=== PATIENT | male | born 1995 ===

== ENCOUNTER 2019-08-05 19:02 | Inpatient (IN) | payer MEDICAID ==
[~2019-08-05] VITALS: Ht 167.6 cm; Wt 77.8 kg
[2019-08-05] MEDS ORDERED: BISACODYL 10 MG SUPP PR PRN (19:30)
[2019-08-05] MEDS ORDERED: DOCUSATE 100 MG CAPSULE PO PRN (19:30)
[2019-08-05] MEDS ORDERED: ONDANSETRON ODT 4 MG PO PRN (19:30)
[2019-08-05] MEDS ORDERED: POLYETHYLENE GLYCOL 17 GM PACKET PO PRN (19:30)
[2019-08-05] MEDS ORDERED: ACETAMINOPHEN 325 MG TABLET PO PRN (19:30)
[2019-08-05 20:15] VITALS: BP 145/86
[2019-08-05] MEDS ORDERED: PLEASE ENTER HEIGHT AND WEIGHT MC SCH (21:30)
[2019-08-05] MEDS ORDERED: PLEASE ENTER ALLERGIES MC SCH (21:30)
[2019-08-06 01:00] VITALS: BP 145/86
[2019-08-06] MEDS ORDERED: TRAZ-175 PO (01:48)
[2019-08-06 05:59] LABS: BASOPHILS # (AUTO) 0.03 x10^3/uL (0-0.1); BASOPHILS % (AUTO) 1 % (0-1); EOSINOPHILS # (AUTO) 0.14 x10^3/uL (0-0.4); EOSINOPHILS % (AUTO) 3 % (1-7); LYMPHOCYTES # (AUTO) 2.24 x10^3/uL (1-3.4); LYMPHOCYTES % (AUTO) 39 % (22-44); MD NO; MEAN CORPUSCULAR HEMOGLOBIN 30.6 pg (27.5-34.5); MEAN CORPUSCULAR HGB CONC 33.8 g/dL (33.2-36.2); MEAN CORPUSCULAR VOLUME 90.6 fL (81-97); MEAN PLATELET VOLUME 8.7 fL (7.4-10.4); MONOCYTES % (AUTO) 7 % (2-9); NEUTROPHILS # (AUTO) 2.94 x10^3/uL (1.8-6.8); NEUTROPHILS % (AUTO) 51 % (42-75); PLATELET COUNT 204 x10^3/uL (130-400); RED BLOOD COUNT 5.77 x10^6/uL (4.38-5.82); RED CELL DISTRIBUTION WIDTH 13.1 % (9.4-14.8)
[2019-08-06 06:07] LABS: CHLORIDE 108 mmol/L (98-107)
[2019-08-06 06:38] LABS: ANION GAP 8 mmol/L (5-15); CALCIUM 9.1 mg/dL (8.5-10.1); CHOL/HDL RATIO 5.3; CHOLESTEROL, TOTAL 186 mg/dL (140-239); CREATININE 1.19 mg/dL (0.7-1.3); FREE T4 (FREE THYROXINE) 1.17 ng/dL (0.76-1.46); HDL CHOL % 19 % (26-37); HDL CHOLESTEROL (DIRECT) 35 mg/dL (40-60); LDL CHOLESTEROL,CALCULATED 132 mg/dL (54-169); LDL/HDL RATIO 3.8 (0.5-3.0); TRIGLYCERIDES 97 mg/dL (50-200); VLDL CHOLESTEROL 19 mg/dL (0-25)
[2019-08-06 07:35] VITALS: BP 133/79
[2019-08-06] MEDS ORDERED: ALUMINUM/MAG/SIMETHICONE 30 ML UDC PO PRN (09:00)
[2019-08-06] MEDS: OMEPRAZOLE 20 MG CAPSULE.DR PO SCH (09:11)
[2019-08-06] MEDS ORDERED: NICOTINE 7 MG/24 HR PATCH.TD24 ONE (10:34)
[2019-08-06] MEDS: NICOTINE 7 MG/24 HR PATCH.TD24 TD SCH (10:36)
[2019-08-06 16:26] LABS: MICROSCOPIC NOT IND
[2019-08-06 16:37] LABS: CULTURE INDICATED? NO
[2019-08-06 19:36] VITALS: BP 131/82
[2019-08-06] MEDS: CARBAMAZEPINE 200 MG TABLET PO SCH (21:07)
[2019-08-07] MEDS: OMEPRAZOLE 20 MG CAPSULE.DR PO SCH (06:32)
[2019-08-07 07:26] VITALS: BP 133/80
[2019-08-07] MEDS ORDERED: LORazepam 1MG TABLET ONE (08:26)
[2019-08-07] MEDS: BUPROPION SR 150 MG TABLET PO SCH (08:29)
[2019-08-07] MEDS: CARBAMAZEPINE 200 MG TABLET PO SCH ×2 (08:29→20:42)
[2019-08-07] MEDS: NICOTINE 7 MG/24 HR PATCH.TD24 TD SCH (08:30)
[2019-08-07] MEDS ORDERED: LORazepam 1MG TABLET PO ONE (08:30)
[2019-08-07] MEDS ORDERED: HYDROXYZINE PAMOATE 50MG CAP PO PRN (18:30)
[2019-08-07 19:37] VITALS: BP 130/88
[2019-08-07] MEDS: QUETIAPINE 25MG TABLET PO SCH (20:43)
[2019-08-08] MEDS: OMEPRAZOLE 20 MG CAPSULE.DR PO SCH (06:34)
[2019-08-08 07:26] VITALS: BP 126/88
[2019-08-08] MEDS: NICOTINE 7 MG/24 HR PATCH.TD24 TD SCH (08:24)
[2019-08-08] MEDS: CARBAMAZEPINE 200 MG TABLET PO SCH ×2 (08:25→20:07)
[2019-08-08] MEDS: BUPROPION SR 150 MG TABLET PO SCH (08:26)
[2019-08-08] MEDS ORDERED: LORazepam 1MG TABLET PO ONE (11:00)
[2019-08-08] MEDS: BACLOFEN 10 MG TABLET PO PRN ×2 (12:34→20:07)
[2019-08-08 19:40] VITALS: BP 133/81
[2019-08-08] MEDS: QUETIAPINE 25MG TABLET PO SCH (20:07)
[2019-08-09] MEDS: OMEPRAZOLE 20 MG CAPSULE.DR PO SCH (05:38)
[2019-08-09 07:36] VITALS: BP 128/77
[2019-08-09] MEDS: BUPROPION SR 150 MG TABLET PO SCH (08:21)
[2019-08-09] MEDS: BACLOFEN 10 MG TABLET PO PRN ×2 (08:21→16:47)
[2019-08-09] MEDS: NICOTINE 7 MG/24 HR PATCH.TD24 TD SCH (08:21)
[2019-08-09] MEDS: CARBAMAZEPINE 200 MG TABLET PO SCH ×2 (08:21→20:52)
[2019-08-09] MEDS ORDERED: LORazepam 1MG TABLET PO ONE ×2 (14:00→18:00)
[2019-08-09] MEDS ORDERED: DIPHENHYDRAMINE 50 MG CAPSULE PO PRN (18:30)
[2019-08-09] MEDS ORDERED: HALOPERIDOL 5 MG TABLET PO ONE (18:30)
[2019-08-09 19:23] VITALS: BP 125/86
[2019-08-09] MEDS: QUETIAPINE 25MG TABLET PO SCH (20:52)
[2019-08-10] MEDS: OMEPRAZOLE 20 MG CAPSULE.DR PO SCH (05:50)
[2019-08-10] MEDS: BACLOFEN 10 MG TABLET PO PRN (06:35)
[2019-08-10 07:25] VITALS: BP 122/70
[2019-08-10] MEDS: BUPROPION SR 150 MG TABLET PO SCH (08:17)
[2019-08-10] MEDS: CARBAMAZEPINE 200 MG TABLET PO SCH (08:18)
[2019-08-10] MEDS: NICOTINE 7 MG/24 HR PATCH.TD24 TD SCH (09:00)
[2019-08-10] MEDS ORDERED: NICOTINE GUM 2 MG BC PRN (09:30)
[2019-08-10] MEDS ORDERED: HALOPERIDOL 5 MG TABLET PO ONE (12:00)
== END 2019-08-10 12:32 | disposition left against medical advice (07) | DRG 885 ==
LOC: 3E 20:36
PROVIDERS: ADMIT Psychiatry & Neurology Psychosomatic Medicine; ATTEND Psychiatry & Neurology Psychosomatic Medicine
DX: F31.30 Bipolar disorder, current episode depressed, mild or moderate severity, unspecified (principal); R45.851 Suicidal ideations; F12.10 Cannabis abuse, uncomplicated; F16.10 Hallucinogen abuse, uncomplicated; F17.200 Nicotine dependence, unspecified, uncomplicated; F41.9 Anxiety disorder, unspecified; G47.00 Insomnia, unspecified; Z76.5 Malingerer [conscious simulation]; Z82.49 Family history of ischemic heart disease and other diseases of the circulatory system; Z83.3 Family history of diabetes mellitus; Z91.5 Personal history of self-harm; J06.9 Acute upper respiratory infection, unspecified
CPT/HCPCS: 36415; 71045; 80048; 80061; 81003; 82607; 84439; 84443; 85025; 93005